=== PATIENT | female | born 1950 ===

== ENCOUNTER 2016-10-27 12:08 | Inpatient (IN) | payer MEDICARE, OTHER ==
[2016-10-27] MEDS ORDERED: NALOXONE 0.4 MG/ML 1 ML VIAL IV PRN (14:51)
[2016-10-27] MEDS ORDERED: ACETAMINOPHEN TAB 325 MG TAB PO PRN (14:51)
[2016-10-27] MEDS ORDERED: ALPRAZolam 0.25 MG TAB PO PRN (14:51)
[2016-10-27] MEDS ORDERED: HYDROcodone/APAP 5-325MG 1 EACH TAB PO PRN (14:51)
[2016-10-27] MEDS ORDERED: MELATONIN 3 MG TABLET PO PRN (14:51)
[2016-10-27] MEDS ORDERED: HYDROmorphone 1 MG/ML 1 ML SYRINGE IVP PRN (14:55)
--- NOTE | 2016-10-27 15:21 | XR ---
EXAMINATION TYPE: XR chest 1V portable DATE OF EXAM: 10/27/2016 COMPARISON: NONE HISTORY: Shortness of breath TECHNIQUE: Single frontal view of the chest is obtained. FINDINGS: Hyperinflation noted. Diffuse osteopenia with arthropathy of the shoulders greater on the right. No overt failure or pneumothorax. Curvature the spine noted. Surgical change in the abdomen. IMPRESSION: 1. Correlate with for COPD
[2016-10-27] MEDS ORDERED: PANTOPRAZOLE 40 MG TABLET PO SCH (15:30)
[2016-10-27] MEDS ORDERED: ONDANSETRON 4 MG/2 ML VIAL IVP PRN (15:41)
[2016-10-27 15:49] LABS: Basophils % (A) 1 %; CH 29.6; CHCM 35.9; Eosinophils % (A) 0 %; HCT 33.6 % (34.0-46.0); HDW 3.28; HGB 11.6 gm/dL (11.4-16.0); Luc # (Auto) 0.12; Luc % (Auto) 2; Lymphocytes # (A) 1.7 k/uL (1.0-4.8); Lymphocytes % (A) 22 %; MCH 28.5 pg (25.0-35.0); MCHC 34.4 g/dL (31.0-37.0); MCV 82.8 fL (80.0-100.0); Mean Platelet Volume 7.1; Monocytes # (A) 0.4 k/uL (0-1.0); Monocytes % (A) 5 %; Neutrophils # (A) 5.5 k/uL (1.3-7.7); Neutrophils % (A) 71 %; RBC 4.06 m/uL (3.80-5.40); WBC 7.7 k/uL (3.8-10.6); WBC (Perox) 8.04
[2016-10-27 15:58] LABS: ALT 37 U/L (9-52); AST 15 U/L (14-36); Alkaline Phosphatase 102 U/L (38-126); Anion Gap 7 mmol/L; Blood Urea Nitrogen 13 mg/dL (7-17); Calcium 8.5 mg/dL (8.4-10.2); Carbon Dioxide 26 mmol/L (22-30); Chloride 106 mmol/L (98-107); Glucose 203 mg/dL (74-99); LDH 410 U/L (313-618); Magnesium 1.6 mg/dL (1.6-2.3); Non-African American GFR(MDRD) >60 (>60 ml/min/1.73 sqM); Phosphorous 3.8 mg/dL (2.5-4.5); Potassium 3.9 mmol/L (3.5-5.1); Sodium 139 mmol/L (137-145); Total Bilirubin 0.3 mg/dL (0.2-1.3)
[2016-10-27 16:00] VITALS: RESP 18
[2016-10-27 17:10] LABS: Creatine Kinase MB 0.9 ng/mL (0.0-2.4); Troponin I 0.028 ng/mL (0.000-0.034)
[2016-10-27] MEDS: HEPARIN SODIUM,PORCINE 5,000 UNIT/ML 1 ML VIAL SQ SCH ×2 (17:11→23:07)
[2016-10-27] MEDS: PANTOPRAZOLE 40 MG/10 ML VIAL IVP SCH (17:11)
[2016-10-27] MEDS: SODIUM CHLORIDE 0.9% 1,000 ML IV SCH (17:12)
[2016-10-27 17:34] LABS: Glucose,Whole Blood 220 mg/dL (75-99)
[2016-10-27] MEDS: INSULIN LISPRO (humaLOG) 300 UNIT/3 ML VIAL SQ SCH ×3 (17:36→22:16)
[2016-10-27 19:05] LABS: Hemoglobin A1C 9.6 % (4.2-6.1)
[2016-10-27] MEDS: SUCRALFATE 1 GM TAB PO SCH (20:53)
[2016-10-27] MEDS: OXYBUTYNIN CHLORIDE 5 MG TAB PO SCH (20:53)
[2016-10-27] MEDS: INSULIN DETEMIR 100 UNIT/ML 10 ML VIAL SQ SCH (21:01)
[2016-10-27 21:12] LABS: Glucose,Whole Blood 200 mg/dL (75-99)
[2016-10-27 22:55] LABS: Appearance,Urine Cloudy (Clear); Bacteria,Urine Many /hpf; Bilirubin,Urine Negative (Negative); Glucose,Urine (UA) Trace (Negative); Ketones,Urine Negative (Negative); Leukocyte Esterase,Urine Large (Negative); Mucus,Urine Rare /hpf; Nitrite,Urine Positive (Negative); Particle Count 89199; Protein,Urine 1+ (Negative); RBC,Urine 4 /hpf (0-5); Specific Gravity,Urine 1.014 (1.001-1.035); Squamous Epithelial Cell,Urine 6 /hpf (0-4); UA Billing (MACRO vs. MICRO) MICRO; Urobilinogen,Urine <2.0 mg/dL (<2.0); WBC,Urine 100 /hpf (0-5)
--- NOTE | 2016-10-27 23:16 | HP ---
HISTORY AND PHYSICAL CHIEF COMPLAINT: Nausea and complete heart block. HISTORY OF PRESENT ILLNESS: This 66-year-old woman with a past medical history male with a past history of COPD, history of left-sided stroke and diabetes type 2, hypertension, hyperlipidemia, being by Dr. Boggs in [place] in the outpatient setting, was having nausea vomiting and patient was taken to [facility] and the patient was noted to have strips of complete heart block and complete AV dissociation with junctional escape for about a few seconds and the patient was directly transferred to [facility] for further evaluation and treatment. The patient has some dysarthria because of the CVA and most of the history is taken in my discussion with staff as well as review of the chart as well as discussion with the ER physician at [facility]. There is no history of fever, rigors. No history of headache, loss of consciousness, seizures. PAST MEDICAL HISTORY: History of left-sided stroke, history COPD, history diabetes mellitus type 2 with hypertension, hyperlipidemia. MEDICATIONS PRIOR TO ADMISSION: Home medications are: 1. Levemir 35 units subcu q.h.s. 2. Aspirin 81 mg daily. 3. Lanoxin 250 mcg p.o. daily. 4. Plavix 75 mg daily. 5. NovoLog 15 units b.i.d. 6. HydroDIURIL 25 mg daily. 7. Imdur 30 mg p.o. daily. 8. Macrobid 100 mg p.o. daily. 9. Zestril 5 mg p.o. 10.Zofran 4 mg q.8h p.r.n. 11.Ditropan 5 mg p.o. b.i.d. 12.Zantac 150 mg p.o. b.i.d. 13.K-Tab ER 20 mEq p.o. daily. 14.Zocor 20 mg p.o. daily. 15.Carafate 1 g p.o. b.i.d. ALLERGIES: IODINATED CONTRAST, IODINE AND SHRIMP. FAMILY HISTORY: No history of heart disease, strokes in the family. SOCIAL HISTORY: History of smoking. No history of alcohol. REVIEW OF SYSTEMS: ENT: Diminished hearing. Diminished vision. CARDIOVASCULAR: No angina or palpitations. RESPIRATORY: Occasional cough. GI: As mentioned earlier. : No dysuria. NERVOUS: No numbness or weakness. ALLERGY/IMMUNOLOGY: No asthma or hay fever. MUSCULOSKELETAL: As mentioned earlier. HEMATOLOGY/ONCOLOGY: No history of anemia. ENDOCRINE: History of diabetes mellitus. CONSTITUTIONAL: As mentioned earlier. DERMATOLOGY: Negative. RHEUMATOLOGY: Negative. PSYCHIATRY: As mentioned earlier. PHYSICAL EXAM: Patient is alert, oriented x2. Pulse is 66, blood pressure 160/70, respiration 18, temperature 97.1, pulse ox 98% on 2L. HEENT: Conjunctivae normal. Oral mucosa moist. NECK: No jugular venous distention. No carotid bruits. No lymph node enlargement. No thyroid enlargement. CARDIOVASCULAR: S1, S2. No S3. No S4. RESPIRATORY: Breath sounds diminished in the bases. A few scattered rhonchi. No crackles. ABDOMEN: Soft, nontender. No mass palpable. LEGS: No edema. No swelling. NERVOUS SYSTEM: Higher functions as mentioned earlier. Cranial nerves: Left- sided upper motor neuron facial paralysis present. Otherwise, significant weakness, up to grade 1 to 2 contractures in the left upper and lower limbs present. Right side is minimally weak. Gait not tested. SKIN: Minimal rash present. LYMPHATIC: No lymphadenopathy in neck, axillae or groin. JOINTS: No arthropathy. LABS: WBC 7.7, hemoglobin is 11.6. Glucose 203. Albumin 3.1. ASSESSMENT: 1. Nausea and vomiting, possible acute gastritis. 2. Complete atrioventricular dissociation. 3. 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 4. History of chronic obstructive pulmonary disease. 5. Diabetes type 2. 6. Hypertension. 7. Hyperlipidemia. 8. History of degenerative joint disease. 9. History of seizure disorder. 10.History of cholecystectomy. 11.History left mastectomy. 12.FULL CODE. RECOMMENDATIONS AND DISCUSSION: In this 66-year-old woman who presented with multiple complex medical issues, will monitor the patient closely, continue with current medications and symptomatic treatment. Otherwise, would recommend to hold the digoxin, check serum digoxin levels, cardiology consultation. The patient may be evaluated for a pacemaker placement. Overall prognosis is guarded. Accu-Cheks a.c. and DVT prophylaxis. See orders for further details. Prognosis guarded. Discussed with the patient and further recommendations to follow. MMODL / IJN: [id number] / MTDD
[2016-10-27 23:24] LABS: Creatine Kinase MB 0.6 ng/mL (0.0-2.4); Troponin I 0.023 ng/mL (0.000-0.034)
[2016-10-28] MEDS ORDERED: ALBUTEROL NEBULIZED 2.5 MG/3 ML INHALATION PRN (01:24)
[2016-10-28 05:48] LABS: Glucose,Whole Blood 56 mg/dL (75-99)
[2016-10-28] MEDS: INSULIN LISPRO (humaLOG) 300 UNIT/3 ML VIAL SQ SCH ×6 (06:06→21:08)
[2016-10-28 06:10] LABS: Glucose,Whole Blood 85 mg/dL (75-99)
[2016-10-28 07:05] LABS: Basophils % (A) 0 %; CH 28.3; Eosinophils % (A) 0 %; HDW 3.32; HGB 11.9 gm/dL (11.4-16.0); Luc # (Auto) 0.12; Luc % (Auto) 1; Lymphocytes # (A) 2.1 k/uL (1.0-4.8); Lymphocytes % (A) 18 %; MCH 28.4 pg (25.0-35.0); MCHC 34.9 g/dL (31.0-37.0); MCV 81.2 fL (80.0-100.0); Mean Platelet Volume 6.5; Monocytes # (A) 0.5 k/uL (0-1.0); Monocytes % (A) 4 %; Neutrophils # (A) 8.9 k/uL (1.3-7.7); Neutrophils % (A) 76 %; RBC 4.18 m/uL (3.80-5.40); RDW 13.7 % (11.5-15.5); WBC 11.6 k/uL (3.8-10.6); WBC (Perox) 12.26
[2016-10-28 07:25] LABS: Anion Gap 7 mmol/L; Calcium 9.2 mg/dL (8.4-10.2); Carbon Dioxide 27 mmol/L (22-30); Chloride 106 mmol/L (98-107); Non-African American GFR(MDRD) >60 (>60 ml/min/1.73 sqM); Potassium 3.4 mmol/L (3.5-5.1); Sodium 140 mmol/L (137-145)
[2016-10-28 07:27] LABS: Blood Urea Nitrogen 15 mg/dL (7-17)
[2016-10-28 07:35] LABS: Glucose 47 mg/dL (74-99)
[2016-10-28 07:48] LABS: Creatine Kinase MB 0.5 ng/mL (0.0-2.4); Troponin I 0.014 ng/mL (0.000-0.034)
--- NOTE | 2016-10-28 08:57 | P.CRDCN ---
History of Present Illness Consult date: 10/28/16 Consult reason: other (Complete heart block) History of present illness: 66-year-old lady with complex and multiple medical problems including prior CVA with left hemiplegia was admitted to hospital with episodes of nausea vomiting and and had an episode of complete heart block when she was vomiting this was transient lasted for about 10 seconds and resolved spontaneously she is transferred to [facility] for further care. Since being admitted here she is doing well and remains in sinus rhythm without any evidence of high- grade AV block patient's nausea vomiting has also resolved by now. The time of my evaluation this morning she appears comfortable at rest and is free of symptoms. I believe the elevated complete heart block is vasovagal in origin and she does not require a permanent pacemaker at this time. I'm going to obtain TSH if one has not been done and a 2-D echo to document her LV function. Review of Systems Constitutional: Denies chills. Denies fever. Eyes: Denies blurred vision. Denies pain. Ears, nose, mouth and throat: Denies headache. Denies sore throat. Cardiovascular: Denies chest pain. Denies shortness of breath. Respiratory: Denies cough. Patient has nausea vomiting Gastrointestinal: Denies abdominal pain. Musculoskeletal: Denies myalgias. Integumentary: Denies pruritus. Denies rash. Neurological: Denies numbness. Left-sided weakness. Psychiatric: Denies anxiety. Denies depression. Endocrine: Denies fatigue. Denies weight change. Genitourinary: Denies burning, hematuria, frequency of urination. Hematological: No anemia or excess bleeding. Past Medical History Past Medical History: Asthma, Cancer, COPD, CVA/TIA, Diabetes Mellitus, GERD/ Reflux, Hyperlipidemia, Hypertension, Liver Disease, Osteoarthritis (OA), Seizure Disorder Additional Past Medical History / Comment(s): anemia, breast cancer, CVA with residual left sided weakness, peptic ulcer History of Any Multi-Drug Resistant Organisms: None Reported Past Surgical History: Cholecystectomy, Hysterectomy Additional Past Surgical History / Comment(s): left mastectomy, EGD, cyst removal, bladder suspension, right outer chest wall mass excision Past Anesthesia/Blood Transfusion Reactions: Unable to Obtain Past Psychological History: Unable to Obtain Smoking Status: Current every day smoker Past Alcohol Use History: Unable to Obtain Past Drug Use History: Unable to Obtain Medications and Allergies Home Medications Medication Instructions Recorded Confirmed Type Acetaminophen-Codeine 300-30mg 1 tab PO Q6H PRN 10/27/16 10/27/16 History [Tylenol #3] Albuterol Inhaler [Ventolin Hfa 2 puff INHALATION RT-Q4H PRN 10/27/16 10/27/16 History Inhaler] Aspirin [Adult Low Dose Aspirin EC] 81 mg PO DAILY 10/27/16 10/27/16 History Baclofen [Lioresal] 10 mg PO BID 10/27/16 10/27/16 History Clopidogrel [Plavix] 75 mg PO DAILY 10/27/16 10/27/16 History Digoxin [Digitek] 125 mcg PO DAILY 10/27/16 10/27/16 History Docusate [Colace] 100 mg PO QID 10/27/16 10/27/16 History Hydrochlorothiazide [Hydrodiuril] 25 mg PO DAILY 10/27/16 10/27/16 History Ibuprofen [Motrin] 400 mg PO TID PRN 10/27/16 10/27/16 History Insulin Detemir [Levemir Flextouch] 40 units SQ QAM 10/27/16 10/27/16 History Insulin Detemir [Levemir] 35 units SQ HS 10/27/16 10/27/16 History Isosorbide Mononitrate ER [Imdur] 30 mg PO DAILY 10/27/16 10/27/16 History Lisinopril [Zestril] 5 mg PO DAILY 10/27/16 10/27/16 History Loratadine [Claritin] 10 mg PO DAILY 10/27/16 10/27/16 History Nitrofurantoin Macrocrystal 50 mg PO DAILY 10/27/16 10/27/16 History [Macrodantin] Ondansetron Odt [Zofran ODT] 4 mg SUBLINGUAL Q8HR PRN 10/27/16 10/27/16 History Oxybutynin Chloride [Ditropan] 5 mg PO QID 10/27/16 10/27/16 History Ranitidine HCl [Zantac] 150 mg PO BID 10/27/16 10/27/16 History Simvastatin [Zocor] 20 mg PO DAILY 10/27/16 10/27/16 History Sucralfate [Carafate] 1 gram PO BID 10/27/16 10/27/16 History hydrOXYzine HCL [Atarax] 25 mg PO HS 10/27/16 10/27/16 History Allergies Allergy/AdvReac Type Severity Reaction Status Date / Time Iodinated Contrast- Oral and Allergy Unknown Verified 10/27/16 16:52 IV Dye iodine Allergy Unknown Verified 10/27/16 16:52 shrimp Allergy Unknown Verified 10/27/16 16:52 Physical Exam Vitals: Vital Signs Temp Pulse Resp BP Pulse Ox 10/28/16 04:00 98.6 F 69 18 121/55 93 L 10/27/16 23:44 97.8 F 62 18 131/59 95 10/27/16 20:00 97.7 F 65 16 118/56 99 10/27/16 18:08 97.1 F L 66 18 141/61 98 10/27/16 15:02 97.1 F L 66 18 165/70 98 10/27/16 15:00 98 18 Intake and Output 10/27/16 10/28/16 10/28/16 22:59 06:59 14:59 Intake Total 60 120 Output Total 200 Balance 60 -80 Intake: IV 120 Sodium Chloride 0.9% 1, 120 000 ml @ 20 mls/hr IV . Q24H BEE Rx#:[id number] Intake, IV Titration 60 Amount Sodium Chloride 0.9% 1, 60 000 ml @ 20 mls/hr IV . Q24H [facility] Rx#:[id number] Oral 0 Output: Urine 200 Other: Voiding Method Toilet Toilet Incontinent Incontinent # Voids 1 1 Weight 63.5 kg 64.8 kg General: The patient is awake and alert, in no distress, and does not appear acutely ill. Skin: Skin is warm and dry and no rashes or lesions are noted. Eye: Pupils are equal, round and reactive to light, extra-ocular movements are intact; there is normal conjunctiva bilaterally. Ears, nose, mouth and throat: There are moist mucous membranes and no oral lesions. Neck: The neck is supple, there is no tenderness or JVD. Cardiovascular: There is a regular rate and rhythm. No murmur, rub or gallop is appreciated. Respiratory: Lungs are clear to auscultation, respirations are non-labored, breath sounds are equal. Gastrointestinal: Soft, non-distended, non-tender abdomen without masses or organomegaly noted. There is no rebound or guarding present. Bowel sounds are unremarkable. Back: There is no tenderness to palpation in the midline. There is no obvious deformity. Musculoskeletal: Normal ROM, no tenderness, There is no pedal edema. There is no calf tenderness or swelling. Extremities: No edema. Vascular: Femoral pulse is normal. Posterior tibial pulses are normal .Dorsalis pedis is palpable. Neurological: Left-sided hemiplegia Psychiatric: Cooperative, appropriate mood & affect, normal judgment. Results 10/28/16 06:30 10/28/16 06:30 Cardiac Enzymes 10/27/16 10/27/16 10/27/16 Range/Units 15:03 16:30 22:23 AST 15 (14-36) U/L Lactate Dehydrogenase 410 (313-618) U/L CK-MB (CK-2) 0.9 0.6 (0.0-2.4) ng/mL Troponin I 0.028 0.023 (0.000-0.034) ng/mL 10/28/16 Range/Units 06:30 AST (14-36) U/L Lactate Dehydrogenase (313-618) U/L CK-MB (CK-2) 0.5 (0.0-2.4) ng/mL Troponin I 0.014 (0.000-0.034) ng/mL CBC 10/27/16 10/28/16 Range/Units 15:03 06:30 WBC 7.7 11.6 H (3.8-10.6) k/uL RBC 4.06 4.18 (3.80-5.40) m/uL Hgb 11.6 11.9 (11.4-16.0) gm/dL Hct 33.6 L 34.0 (34.0-46.0) % Plt Count 228 240 (150-450) k/uL Comprehensive Metabolic Panel 10/27/16 10/28/16 Range/Units 15:03 06:30 Sodium 139 140 (137-145) mmol/L Potassium 3.9 3.4 L (3.5-5.1) mmol/L Chloride 106 106 (98-107) mmol/L Carbon Dioxide 26 27 (22-30) mmol/L BUN 13 15 (7-17) mg/dL Creatinine 0.79 0.81 (0.52-1.04) mg/dL Glucose 203 H 47 L* (74-99) mg/dL Calcium 8.5 9.2 (8.4-10.2) mg/dL AST 15 (14-36) U/L ALT 37 (9-52) U/L Alkaline Phosphatase 102 (38-126) U/L Total Protein 6.0 L (6.3-8.2) g/dL Albumin 3.1 L (3.5-5.0) g/dL Current Medications Generic Name Dose Route Start Last Admin Trade Name Freq PRN Reason Stop Dose Admin Acetaminophen 650 mg 10/27/16 14:51 Tylenol Tab PO Q6HR PRN Mild Pain or Fever > 100.5 Hydrocodone Bitart/Acetaminophen 1 each 10/27/16 14:51 [place] 5-325 PO Q4HR PRN Moderate Pain Albuterol Sulfate 2.5 mg 10/28/16 01:24 Ventolin Nebulized INHALATION RT-Q4H PRN Shortness Of Breath Alprazolam 0.25 mg 10/27/16 14:51 Xanax PO Q6HR PRN Anxiety Aspirin 81 mg 10/28/16 09:00 Aspirin PO DAILY COUNTS INCLUDE 234 BEDS AT THE [facility] Atorvastatin Calcium 10 mg 10/28/16 09:00 Lipitor PO DAILY COUNTS INCLUDE 234 BEDS AT THE [facility] Baclofen 10 mg 10/28/16 09:00 Lioresal PO BID COUNTS INCLUDE 234 BEDS AT THE [facility] Clopidogrel Bisulfate 75 mg 10/28/16 09:00 Plavix PO DAILY COUNTS INCLUDE 234 BEDS AT THE [facility] Docusate Sodium 100 mg 10/28/16 09:00 Colace PO QID COUNTS INCLUDE 234 BEDS AT THE [facility] Heparin Sodium (Porcine) 5,000 unit 10/27/16 15:30 10/27/16 23:07 Heparin SQ 5,000 unit Q12HR COUNTS INCLUDE 234 BEDS AT THE [facility] Administration Hydrochlorothiazide 25 mg 10/28/16 09:00 Hydrodiuril PO DAILY COUNTS INCLUDE 234 BEDS AT THE [facility] Hydromorphone HCl 0.5 mg 10/27/16 14:55 Dilaudid IVP Q6HR PRN Severe Pain Sodium Chloride 1,000 mls @ 20 mls/hr 10/27/16 15:00 10/27/16 17:12 Saline 0.9% IV 20 mls/hr .Q24H COUNTS INCLUDE 234 BEDS AT THE [facility] Administration Ceftriaxone Sodium 1,000 mg/ 50 mls @ 100 mls/hr 10/28/16 09:00 Sodium Chloride IVPB Q24HR COUNTS INCLUDE 234 BEDS AT THE [facility] Insulin Detemir 35 unit 10/27/16 21:00 10/27/16 21:01 Levemir SQ 35 unit HS COUNTS INCLUDE 234 BEDS AT THE [facility] Administration Insulin Detemir 40 unit 10/28/16 09:00 Levemir SQ QAM COUNTS INCLUDE 234 BEDS AT THE [facility] Insulin Human Lispro 15 unit 10/27/16 17:30 10/28/16 06:09 Humalog SQ Not Given BID-W/MEALS COUNTS INCLUDE 234 BEDS AT THE [facility] Insulin Human Lispro 0 unit 10/27/16 17:30 10/28/16 06:06 Humalog SQ Not Given ACHS COUNTS INCLUDE 234 BEDS AT THE [facility] Protocol Isosorbide Mononitrate 30 mg 10/28/16 09:00 Imdur PO DAILY COUNTS INCLUDE 234 BEDS AT THE [facility] Lisinopril 5 mg 10/28/16 09:00 Zestril PO DAILY COUNTS INCLUDE 234 BEDS AT THE [facility] Melatonin 3 mg 10/27/16 14:51 Melatonin PO HS PRN Insomnia Naloxone HCl 0.2 mg 10/27/16 14:51 Narcan IV Q2M PRN Opioid Reversal Ondansetron HCl 4 mg 10/27/16 15:41 Zofran IVP Q6HR PRN Nausea And Vomiting Oxybutynin Chloride 5 mg 10/27/16 21:00 10/27/16 20:53 Ditropan PO 5 mg BID COUNTS INCLUDE 234 BEDS AT THE [facility] Administration Pantoprazole Sodium 40 mg 10/27/16 15:45 10/27/16 17:11 Protonix IVP 40 mg DAILY COUNTS INCLUDE 234 BEDS AT THE [facility] Administration Potassium Chloride 20 meq 10/28/16 09:00 K-Dur 20 PO DAILY COUNTS INCLUDE 234 BEDS AT THE [facility] Sucralfate 1 gm 10/27/16 21:00 10/27/16 20:53 Carafate PO 1 gm BID COUNTS INCLUDE 234 BEDS AT THE [facility] Administration Intake and Output 10/27/16 10/28/16 10/28/16 22:59 06:59 14:59 Intake Total 60 120 Output Total 200 Balance 60 -80 Intake: IV 120 Sodium Chloride 0.9% 1, 120 000 ml @ 20 mls/hr IV . Q24H COUNTS INCLUDE 234 BEDS AT THE [facility] Rx#:[id number] Intake, IV Titration 60 Amount Sodium Chloride 0.9% 1, 60 000 ml @ 20 mls/hr IV . Q24H COUNTS INCLUDE 234 BEDS AT THE [facility] Rx#:[id number] Oral 0 Output: Urine 200 Other: Voiding Method Toilet Toilet Incontinent Incontinent # Voids 1 1 Weight 63.5 kg 64.8 kg 10/28/16 06:30 10/28/16 06:30 EKG Interpretations (text) Normal sinus rhythm with nonspecific ST-T wave changes Reviewed monitor strips from the other hospital patient had an episode of complete heart block along with vomiting probably vasovagal Assessment and Plan Plan: Nausea vomiting workup in progress Complete heart block vasovagal in origin Does not need pacemaker I will obtain a 2-D echo I reviewed the testing done at the other hospital reviewed the EKGs and rhythm strips.
[2016-10-28] MEDS: ASPIRIN 81 MG CHEW PO SCH (09:46)
[2016-10-28] MEDS: ATORVASTATIN 10 MG TAB PO SCH (09:46)
[2016-10-28] MEDS: BACLOFEN 10 MG TAB PO SCH ×2 (09:46→20:11)
[2016-10-28] MEDS: HYDROCHLOROTHIAZIDE 25 MG TAB PO SCH (09:47)
[2016-10-28] MEDS: CLOPIDOGREL 75 MG TAB PO SCH (09:47)
[2016-10-28] MEDS: HEPARIN SODIUM,PORCINE 5,000 UNIT/ML 1 ML VIAL SQ SCH ×2 (09:47→20:11)
[2016-10-28] MEDS: ISOSORBIDE MONONITRATE ER 30 MG TAB.ER.24H PO SCH (09:47)
[2016-10-28] MEDS: LISINOPRIL 5 MG TAB PO SCH (09:47)
[2016-10-28] MEDS: DOCUSATE 100 MG CAP PO SCH ×4 (09:47→20:11)
[2016-10-28] MEDS: PANTOPRAZOLE 40 MG/10 ML VIAL IVP SCH (09:48)
[2016-10-28] MEDS: SUCRALFATE 1 GM TAB PO SCH ×2 (09:48→20:11)
[2016-10-28] MEDS: OXYBUTYNIN CHLORIDE 5 MG TAB PO SCH ×2 (09:48→20:11)
[2016-10-28] MEDS: POTASSIUM CHLORIDE ER 20 MEQ TAB.ER PO SCH (09:48)
[2016-10-28 11:38] LABS: Glucose,Whole Blood 184 mg/dL (75-99)
--- NOTE | 2016-10-28 12:05 | CDI ---
In responding to this query, please exercise your independent professional judgment. The [facility] Coding Staff and Clinical Documentation Specialists appreciate your assistance in clarifying documentation, maintaining compliance with coding guidelines, accurately documenting patients condition and capturing severity of illness. The fact that a question is asked does not imply that any particular answer is desired or expected. Communication forms are a method of clarifying documentation and are not made part of the Legal Health Record. Thank you in advance for your clarification. Last Revision, December 2014 Jaya Molina [address] [facility] [place] [address] Documentation Clarification Form Date: 10/28/2016 11:49:00 AM From: Barbara Almendarez RN, CDS Admit Date: 10/27/2016 2:48:00 PM Patient Name: Kristi Bang Visit Number: [id number] Dr. Autumn Zimmerman, 66 year old patient admitted for complete heart block from an outside facility. History/Risk Factors: CVA with left hemiplegia and contractures, Seizure disorder, HTN, DM2, COPD Clinical Indicators: UA large leuk amrcelle, +nitrite, many bacteria Treatment: IV Rocephin Please document the condition that these clinical indicators signify, whether Present on Admission, and cause if known: UTI, present on admission Pyelonephritis Unable to determine Other Please document in your progress notes and discharge summary in order to capture severity of illness and risk of mortality. Include clinical findings that support your diagnosis. FYI: Press F11 to launch patient chart. Thank you. INESSA
[2016-10-28] MEDS: INSULIN DETEMIR 100 UNIT/ML 10 ML VIAL SQ SCH ×2 (12:22→20:20)
[2016-10-28 12:46] VITALS: BMI 27.3
[2016-10-28] MEDS ORDERED: Magnesium Replacement Protocol 1 EACH MISC MISCELLANE PRN (12:56)
[2016-10-28] MEDS ORDERED: Potassium Replacement Protocol 1 EACH MISC MISCELLANE PRN (12:56)
[2016-10-28] MEDS: SODIUM CHLORIDE 0.9% 1,000 ML IV SCH (16:22)
[2016-10-28] MEDS: MAGNESIUM SULFATE-D5W PMX 1 GM in DEXTROSE/WATER 1 100ML.BAG IVPB SCH ×2 (16:23→17:33)
[2016-10-28 16:47] LABS: Glucose,Whole Blood 244 mg/dL (75-99)
--- NOTE | 2016-10-28 17:44 | ECHOF ---
Referral Reason:complete heart block MEASUREMENTS -------- HEIGHT: 152.4 cm WEIGHT: 64.4 kg BP: 121/55 RVIDd: 2.5 cm (< 3.3) IVSd: 0.9 cm (0.6 - 1.1) LVIDd: 4.8 cm (3.9 - 5.3) LVPWd: 0.9 cm (0.6 - 1.1) IVSs: 1.4 cm LVIDs: 3.4 cm LVPWs: 1.3 cm LAESV Index (A-L): 22.60 ml/m Ao Diam: 3.0 cm (2.0 - 3.7) AV Cusp: 1.6 cm (1.5 - 2.6) LA Diam: 3.5 cm (2.7 - 3.8) MV EXCURSION: 17.202 mm (> 18.000) MV EF SLOPE: 120 mm/s (70 - 150) EPSS: 0.4 cm MV E Humberto: 1.06 m/s MV DecT: 226 ms MV A Humberto: 0.79 m/s MV E/A Ratio: 1.34 RAP: 15.00 mmHg RVSP: 40.47 mmHg FINDINGS -------- Sinus rhythm. This was a technically adequate study. Pt had mastectomy The left ventricular size is normal. Left ventricular wall thickness is normal. Overall left ventricular systolic function is normal with, an EF between 55 - 60 %. The right ventricle is mildly enlarged. The right ventricular systolic function is normal. Normal LA size by volume 22+/-6 ml/m2. RA appears enlarged. Aortic valve is trileaflet and is mildly thickened. There is no evidence of aortic regurgitation. There is no evidence of aortic stenosis. The mitral valve leaflets are mildly thickened. There is trace to mild mitral regurgitation. Trace tricuspid regurgitation present. There is mild pulmonary hypertension. The right ventricular systolic pressure, as measured by Doppler, is 40.47mmHg. The pulmonic valve was not well visualized. The aortic root size is normal. The inferior vena cava is dilated with poor inspiratory collapse which is consistent with estimated right atrial pressure of 20 mmHg. There is a trivial pericardial effusion present. CONCLUSIONS -------- 1. Sinus rhythm. 2. Aortic valve is trileaflet and is mildly thickened. 3. The mitral valve leaflets are mildly thickened. 4. There is trace to mild mitral regurgitation. 5. Trace tricuspid regurgitation present. 6. There is mild pulmonary hypertension. 7. The right ventricular systolic pressure, as measured by Doppler, is 40.47mmHg. 8. The pulmonic valve was not well visualized. 9. The aortic root size is normal. 10. The inferior vena cava is dilated with poor inspiratory collapse which is consistent with estimated right atrial pressure of 20 mmHg. 11. There is a trivial pericardial effusion present. 12. This was a technically adequate study. 13. Pt had mastectomy 14. The left ventricular size is normal. 15. Overall left ventricular systolic function is normal with, an EF between 55 - 60 %. 16. The right ventricle is mildly enlarged. 17. The right ventricular systolic function is normal. 18. Normal LA size by volume 22+/-6 ml/m2. 19. RA appears enlarged. FIRE WATCHMAN: Zenon Reynoso RDCS
--- NOTE | 2016-10-28 18:17 | P.PN ---
Subjective Date of service 10/28/2016 Progress note being dictated for Dr. Zimmerman Interval history: This a 66-year-old female admitted with nausea vomiting, possible gastritis, complete AV disassociation and multiple other medical issues. Evaluated by cardiology, suspect related to vasovagal with no recommendation for a pacemaker at this time. Telemetry reporting sinus rhythm. No further nausea vomiting. No diarrhea. Good diet intake, consuming 100%. 2-D Echo reporting normal LV function, EF 55-60%. Denies chest pain, palpitations or increasing shortness of breath. Objective - Vital Signs Vital signs: Vital Signs Temp 96.7 F L 10/28/16 15:12 Pulse 62 10/28/16 15:12 Resp 18 10/28/16 15:12 BP 132/61 10/28/16 15:12 Pulse Ox 97 10/28/16 15:12 Intake & Output 10/27/16 10/28/16 10/28/16 18:59 06:59 18:59 Intake Total 60 120 456 Output Total 200 Balance 60 -80 456 Weight 63.5 kg 64.8 kg 64.8 kg Intake: IV 120 Sodium Chloride 0.9% 1, 120 000 ml @ 20 mls/hr IV . Q24H BEE Rx#:[id number] Intake, IV Titration 60 Amount Sodium Chloride 0.9% 1, 60 000 ml @ 20 mls/hr IV . Q24H BEE Rx#:[id number] Oral 0 456 Output: Urine 200 Other: Voiding Method Toilet Toilet Toilet Incontinent Incontinent Incontinent # Voids 1 1 1 # Bowel Movements 1 - Exam PHYSICAL EXAM: VITAL SIGNS: As above GENERAL: Sitting up in bed, no acute distress HEENT: Conjunctivae normal. eyes normal. Mucosa NECK: No JVD. No thyroid enlargement. No LNs CARDIOVASCULAR: S1, S2 muffled. No murmur RESPIRATION: Breath sounds diminished in the bases. No rhonchi or crackles. No bronchial breathing. ABDOMEN: Soft, nontender . No guarding. no masses palpable. No ascites, No hepatosplenomegaly.Bowel sounds heard. LEGS: No edema. no swelling PSYCHIATRY: Alert and oriented -3, mood and affect normal. NERVOUS SYSTEM: Cranial N 2-12 grossly normal. No focal deficits. Left-sided upper motor neuron Facial paralysis, grade 1-2 contractures left upper and left lower limbs present. Minimal weakness right-side. Skin: no ulcer no rash Joints: No active swelling. No arthroplasty Lymphatic system. No LN neck axilla or groin. - Labs CBC & Chem 7: 10/28/16 06:30 10/28/16 06:30 Labs: Abnormal Lab Results - Last 24 Hours (Table) 10/27/16 10/27/16 10/27/16 Range/Units 15:03 21:10 22:38 WBC (3.8-10.6) k/uL Neutrophils # (1.3-7.7) k/uL Potassium (3.5-5.1) mmol/L Glucose (74-99) mg/dL POC Glucose (mg/dL) 200 H (75-99) mg/dL Hemoglobin A1c 9.6 H (4.2-6.1) % Magnesium (1.6-2.3) mg/dL Urine Appearance Cloudy H (Clear) Urine Protein 1+ H (Negative) Urine Glucose (UA) Trace H (Negative) Urine Blood Small H (Negative) Urine Nitrite Positive H (Negative) Ur Leukocyte Esterase Large H (Negative) Urine WBC 100 H (0-5) /hpf Urine WBC Clumps Many H (None) /hpf Ur Squamous Epith Cells 6 H (0-4) /hpf Urine Bacteria Many H (None) /hpf Urine Mucus Rare H (None) /hpf 10/28/16 10/28/16 10/28/16 Range/Units 05:47 06:30 06:30 WBC 11.6 H (3.8-10.6) k/uL Neutrophils # 8.9 H (1.3-7.7) k/uL Potassium 3.4 L (3.5-5.1) mmol/L Glucose 47 L* (74-99) mg/dL POC Glucose (mg/dL) 56 L (75-99) mg/dL Hemoglobin A1c (4.2-6.1) % Magnesium (1.6-2.3) mg/dL Urine Appearance (Clear) Urine Protein (Negative) Urine Glucose (UA) (Negative) Urine Blood (Negative) Urine Nitrite (Negative) Ur Leukocyte Esterase (Negative) Urine WBC (0-5) /hpf Urine WBC Clumps (None) /hpf Ur Squamous Epith Cells (0-4) /hpf Urine Bacteria (None) /hpf Urine Mucus (None) /hpf 10/28/16 10/28/16 10/28/16 Range/Units 06:30 11:35 16:35 WBC (3.8-10.6) k/uL Neutrophils # (1.3-7.7) k/uL Potassium (3.5-5.1) mmol/L Glucose (74-99) mg/dL POC Glucose (mg/dL) 184 H 244 H (75-99) mg/dL Hemoglobin A1c (4.2-6.1) % Magnesium 1.5 L (1.6-2.3) mg/dL Urine Appearance (Clear) Urine Protein (Negative) Urine Glucose (UA) (Negative) Urine Blood (Negative) Urine Nitrite (Negative) Ur Leukocyte Esterase (Negative) Urine WBC (0-5) /hpf Urine WBC Clumps (None) /hpf Ur Squamous Epith Cells (0-4) /hpf Urine Bacteria (None) /hpf Urine Mucus (None) /hpf Assessment and Plan Plan: 1. Nausea, vomiting, possible acute gastritis, improving. 2. 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 [ History of CVA with left hemiplegia with contractures]. 4. [ COPD]. 5. [ Diabetes type 2]. 6. [ Seizure disorder]. Plan: Continue on current medication regime ,monitoring and symptomatic treatment. Potassium to be supplemented per replacement protocol. Earlier this morning patient had isolated episode of hypoglycemia , good diet intake with blood sugars now stable ;continue patient's home dose of Levemir. Follow closely with cardiology. Discharge planning in progress for tomorrow. The impression and plan of care has been dictated as directed as a scribe. : I performed a H&P examination of this patient and discussed the same with the dictator. I agree with the dictator's note. Any additional findings/opinions/ etc. will be noted.
[2016-10-28] MEDS: POTASSIUM CHLORIDE 10 MEQ, LIDOCAINE 2% INJ 10 MG in SODIUM CHLORIDE 0.9% 100 ML IV SCH ×2 (20:11→21:10)
[2016-10-28 20:57] LABS: Glucose,Whole Blood 126 mg/dL (75-99)
[2016-10-29 03:45] LABS: Glucose,Whole Blood 54 mg/dL (75-99)
[2016-10-29 04:08] LABS: Glucose,Whole Blood 80 mg/dL (75-99)
[2016-10-29 06:13] LABS: Basophils % (A) 0 %; CH 28.3; CHCM 34.7; Eosinophils % (A) 0 %; HCT 30.3 % (34.0-46.0); HDW 3.35; HGB 10.5 gm/dL (11.4-16.0); Luc # (Auto) 0.09; Luc % (Auto) 1; Lymphocytes # (A) 1.2 k/uL (1.0-4.8); Lymphocytes % (A) 18 %; MCH 28.4 pg (25.0-35.0); MCHC 34.7 g/dL (31.0-37.0); MCV 81.8 fL (80.0-100.0); Mean Platelet Volume 6.6; Monocytes # (A) 0.3 k/uL (0-1.0); Monocytes % (A) 4 %; Neutrophils # (A) 5.3 k/uL (1.3-7.7); Neutrophils % (A) 76 %; RBC 3.71 m/uL (3.80-5.40); RDW 13.6 % (11.5-15.5); WBC 6.9 k/uL (3.8-10.6); WBC (Perox) 7.19
[2016-10-29] MEDS: INSULIN LISPRO (humaLOG) 300 UNIT/3 ML VIAL SQ SCH ×3 (06:27→12:09)
[2016-10-29 06:28] LABS: Anion Gap 7 mmol/L; Blood Urea Nitrogen 17 mg/dL (7-17); Calcium 9.4 mg/dL (8.4-10.2); Carbon Dioxide 27 mmol/L (22-30); Chloride 103 mmol/L (98-107); Glucose 106 mg/dL (74-99); Magnesium 1.7 mg/dL (1.6-2.3); Non-African American GFR(MDRD) >60 (>60 ml/min/1.73 sqM); Potassium 4.4 mmol/L (3.5-5.1); Sodium 137 mmol/L (137-145)
[2016-10-29 06:31] LABS: Glucose,Whole Blood 123 mg/dL (75-99)
[2016-10-29] MEDS: HEPARIN SODIUM,PORCINE 5,000 UNIT/ML 1 ML VIAL SQ SCH (08:18)
[2016-10-29] MEDS: ATORVASTATIN 10 MG TAB PO SCH (08:18)
[2016-10-29] MEDS: ASPIRIN 81 MG CHEW PO SCH (08:18)
[2016-10-29] MEDS: ISOSORBIDE MONONITRATE ER 30 MG TAB.ER.24H PO SCH (08:18)
[2016-10-29] MEDS: BACLOFEN 10 MG TAB PO SCH (08:18)
[2016-10-29] MEDS: CLOPIDOGREL 75 MG TAB PO SCH (08:18)
[2016-10-29] MEDS: OXYBUTYNIN CHLORIDE 5 MG TAB PO SCH (08:19)
[2016-10-29] MEDS: DOCUSATE 100 MG CAP PO SCH ×2 (08:19→13:51)
[2016-10-29] MEDS: PANTOPRAZOLE 40 MG/10 ML VIAL IVP SCH (08:19)
[2016-10-29] MEDS: HYDROCHLOROTHIAZIDE 25 MG TAB PO SCH (08:19)
[2016-10-29] MEDS: POTASSIUM CHLORIDE ER 20 MEQ TAB.ER PO SCH (08:20)
[2016-10-29] MEDS: LISINOPRIL 5 MG TAB PO SCH (08:20)
[2016-10-29] MEDS: INSULIN DETEMIR 100 UNIT/ML 10 ML VIAL SQ SCH (08:27)
--- NOTE | 2016-10-29 10:07 | P.PN ---
Subjective Principal diagnosis: Complete heart block This is a pleasant 66-year-old female with prior history of CVA, left hemiplegia, COPD, diabetes mellitus, hypertension and hyperlipidemia. Was admitted to the hospital with episodes of nausea and vomiting. She had an episode of complete heart block when she was vomiting, this was transient lasted for about 10 seconds and resolve spontaneously. She was subsequently transferred to [facility] for further care. Since admission, she has had no evidence of high-grade AV block and patient's nausea and vomiting has resolved. A 2-D echo with Doppler showed an ejection fraction of 55-60% and mild pulmonary hypertension. TSH came in to be normal at 0.582. At the time my examination, patient is sitting up on the side of the bed. She feels well. She denies further complaints of nausea or vomiting. Temperature strips were reviewed and discussed with the nurse, no evidence of complete heart block. Objective - Vital Signs Vital signs: Vital Signs Temp 97.6 F 10/29/16 03:50 Pulse 60 10/29/16 03:50 Resp 18 10/29/16 03:50 BP 117/57 10/29/16 03:50 Pulse Ox 98 10/29/16 07:25 Intake & Output 10/28/16 10/29/16 10/29/16 18:59 06:59 18:59 Intake Total 656 400 Output Total 800 900 Balance -144 -900 400 Weight 64.8 kg 65.8 kg Intake: Oral 656 400 Output: Urine 800 900 Other: Voiding Method Toilet Toilet Incontinent # Voids 1 1 # Bowel Movements 1 - Exam PHYSICAL EXAMINATION: HEENT: Head is atraumatic, normocephalic. Pupils equal, round. Neck is supple. There is no elevated jugular venous pressure. HEART EXAMINATION: Heart sounds regular, S1 and S2 normal. No murmur or gallop heard. CHEST EXAMINATION: Lungs are clear to auscultation and precussion. No chest wall tenderness is noted on palpation or with deep breathing. ABDOMEN: Soft, nontender. Bowel sounds are heard. No organomegaly noted. EXTREMITIES: 2+ peripheral pulses with no evidence of peripheral edema and no calf tenderness noted. NEUROLOGIC patient is awake, alert and oriented x3 with left-sided hemiplegia. . - Labs CBC & Chem 7: 10/29/16 05:52 10/29/16 05:52 Labs: Abnormal Lab Results - Last 24 Hours (Table) 10/28/16 10/28/16 10/28/16 Range/Units 06:30 11:35 16:35 RBC (3.80-5.40) m/uL Hgb (11.4-16.0) gm/dL Hct (34.0-46.0) % Glucose (74-99) mg/dL POC Glucose (mg/dL) 184 H 244 H (75-99) mg/dL Magnesium 1.5 L (1.6-2.3) mg/dL 10/28/16 10/29/16 10/29/16 Range/Units 20:34 03:27 05:52 RBC 3.71 L (3.80-5.40) m/uL Hgb 10.5 L (11.4-16.0) gm/dL Hct 30.3 L (34.0-46.0) % Glucose (74-99) mg/dL POC Glucose (mg/dL) 126 H 54 L (75-99) mg/dL Magnesium (1.6-2.3) mg/dL 10/29/16 10/29/16 Range/Units 05:52 06:19 RBC (3.80-5.40) m/uL Hgb (11.4-16.0) gm/dL Hct (34.0-46.0) % Glucose 106 H (74-99) mg/dL POC Glucose (mg/dL) 123 H (75-99) mg/dL Magnesium (1.6-2.3) mg/dL Microbiology - Last 24 Hours (Table) 10/28/16 01:56 Blood Culture - Preliminary Blood No Growth after 24 hours 10/28/16 14:30 Urine Culture - Preliminary Urine,Voided Assessment and Plan Plan: Assessment and plan #1 complete heart block, vasovagal in origin #2 hypertension #3 history of CVA with left hemiplegia #4 hyperlipidemia #5 nausea and vomiting, resolved From Student Counsellor perspective, patient does not require pacemaker at this time. Patient may be discharged home. She'll follow-up as an outpatient. The above dictated assessment and findings were discussed with signing physician. The impression and plan of care have been directed as dictated. Karla Fernandez, Nurse Practitioner, acting as scribe for signing physician.
--- NOTE | 2016-10-29 10:39 | PN ---
PROGRESS NOTE Please add: Urinary tract infection, present on admission. MMODL / IJN: [id number] /
[2016-10-29 11:58] LABS: Glucose,Whole Blood 293 mg/dL (75-99)
[2016-10-29 13:01] VITALS: PULSE 65; TEMP 97.7
[2016-10-29 13:02] VITALS: BP 139/65
[2016-10-29] MEDS: SUCRALFATE 1 GM TAB PO SCH (13:51)
--- NOTE | 2016-10-29 17:59 | P.DS ---
Providers Date of admission: 10/27/16 14:48 Attending physician: Autumn Zimmerman Consults: 10/27/16 14:54 Consult Physician Routine Consulting Provider: Nigel Betancourt Consult Reason/Comments: complete heart block Do you want consulting provider notified?: Yes Primary care physician: [place] [facility] Course: This 66-year-old woman was admitted with the nausea vomiting and complete AV dissociation with a junctional rhythm. The patient was treated symptomatically. The AV dissociation was thought to be due to vasovagal reaction per cardiology. Please refer to cardiology note for further information. Digoxin level was normal. Treated symptomatically. Patient was significantly. Patient be discharged in a stable guarded prognosis after clearance from cardiology. On exam vitals stable. Cardio S1 and S2 normal abdomen soft nontender nontender no mass palpable. Respiratory system clear to auscultation. Abdomen no system no focal deficit. Final diagnosis 1. Nausea vomiting possible acute gastritis improving. 2. Complete AV dissociation possibly vasovagal currently sinus rhythm. 3. History of CVA with left hemiplegia with contractures. 4. COPD. 5. Diabetes mellitus type II. 6. Seizure disorder. Plan - Discharge Summary New Discharge Prescriptions: New Cefuroxime Axetil [Ceftin] 500 mg PO BID #8 tab INSULIN LISPRO (humaLOG) [humaLOG (formulary)] 15 unit SQ BID-W/MEALS vial Continue Sucralfate [Carafate] 1 gram PO BID Simvastatin [Zocor] 20 mg PO DAILY Ranitidine HCl [Zantac] 150 mg PO BID Oxybutynin Chloride [Ditropan] 5 mg PO QID Ondansetron Odt [Zofran ODT] 4 mg SUBLINGUAL Q8HR PRN PRN Reason: Nausea And Vomiting Lisinopril [Zestril] 5 mg PO DAILY Isosorbide Mononitrate ER [Imdur] 30 mg PO DAILY Insulin Detemir [Levemir] 35 units SQ HS Hydrochlorothiazide [Hydrodiuril] 25 mg PO DAILY Clopidogrel [Plavix] 75 mg PO DAILY Aspirin [Adult Low Dose Aspirin EC] 81 mg PO DAILY Digoxin [Digitek] 125 mcg PO DAILY Insulin Detemir [Levemir Flextouch] 40 units SQ QAM Nitrofurantoin Macrocrystal [Macrodantin] 50 mg PO DAILY hydrOXYzine HCL [Atarax] 25 mg PO HS Loratadine [Claritin] 10 mg PO DAILY Ibuprofen [Motrin] 400 mg PO TID PRN PRN Reason: Pain Albuterol Inhaler [Ventolin Hfa Inhaler] 2 puff INHALATION RT-Q4H PRN PRN Reason: Shortness Of Breath Docusate [Colace] 100 mg PO QID Baclofen [Lioresal] 10 mg PO BID Acetaminophen-Codeine 300-30mg [Tylenol w/codeine #3] 1 tab PO Q6H PRN PRN Reason: Pain Discharge Medication List Acetaminophen-Codeine 300-30mg [Tylenol w/codeine #3] 1 tab PO Q6H PRN 10/27/16 [History] Albuterol Inhaler [Ventolin Hfa Inhaler] 2 puff INHALATION RT-Q4H PRN 10/27/16 [ History] Aspirin [Adult Low Dose Aspirin EC] 81 mg PO DAILY 10/27/16 [History] Baclofen [Lioresal] 10 mg PO BID 10/27/16 [History] Clopidogrel [Plavix] 75 mg PO DAILY 10/27/16 [History] Digoxin [Digitek] 125 mcg PO DAILY 10/27/16 [History] Docusate [Colace] 100 mg PO QID 10/27/16 [History] Hydrochlorothiazide [Hydrodiuril] 25 mg PO DAILY 10/27/16 [History] Ibuprofen [Motrin] 400 mg PO TID PRN 10/27/16 [History] Insulin Detemir [Levemir Flextouch] 40 units SQ QAM 10/27/16 [History] Insulin Detemir [Levemir] 35 units SQ HS 10/27/16 [History] Isosorbide Mononitrate ER [Imdur] 30 mg PO DAILY 10/27/16 [History] Lisinopril [Zestril] 5 mg PO DAILY 10/27/16 [History] Loratadine [Claritin] 10 mg PO DAILY 10/27/16 [History] Nitrofurantoin Macrocrystal [Macrodantin] 50 mg PO DAILY 10/27/16 [History] Ondansetron Odt [Zofran ODT] 4 mg SUBLINGUAL Q8HR PRN 10/27/16 [History] Oxybutynin Chloride [Ditropan] 5 mg PO QID 10/27/16 [History] Ranitidine HCl [Zantac] 150 mg PO BID 10/27/16 [History] Simvastatin [Zocor] 20 mg PO DAILY 10/27/16 [History] Sucralfate [Carafate] 1 gram PO BID 10/27/16 [History] hydrOXYzine HCL [Atarax] 25 mg PO HS 10/27/16 [History] Cefuroxime Axetil [Ceftin] 500 mg PO BID #8 tab 10/29/16 [Rx] INSULIN LISPRO (humaLOG) [humaLOG (formulary)] 15 unit SQ BID-W/MEALS vial 11/06 [Rx] Follow up Appointment(s)/Referral(s): Hermann Boggs DO [Primary Care Provider] - 3 Days Nigel Betancourt MD [STAFF PHYSICIAN] - 6 Weeks ([facility]) Ambulatory/Diagnostic Orders: Complete Blood Count w/diff [LAB.AMB] Location: Determined By Patient Activity/Diet/Wound Care/Special Instructions: diet cardiac act limited till f/u Discharge Disposition: HOME SELF-CARE
[2016-10-30] MEDS ORDERED: PANTOPRAZOLE 40 MG TABLET PO SCH (07:30)
== END 2016-10-29 15:56 | disposition home or self-care (01) | DRG 309 ==
LOC: 6SEL 14:48
PROVIDERS: ADMIT Hospitalist; ATTEND Hospitalist
DX: I44.2 Atrioventricular block, complete (principal); I69.354 Hemiplegia and hemiparesis following cerebral infarction affecting left non-dominant side; I27.2 Other secondary pulmonary hypertension; N39.0 Urinary tract infection, site not specified; I10 Essential (primary) hypertension; E11.9 Type 2 diabetes mellitus without complications; E78.5 Hyperlipidemia, unspecified; F17.200 Nicotine dependence, unspecified, uncomplicated; G40.909 Epilepsy, unspecified, not intractable, without status epilepticus; M62.40 Contracture of muscle, unspecified site; J44.9 Chronic obstructive pulmonary disease, unspecified; K21.9 Gastro-esophageal reflux disease without esophagitis; Z79.02 Long term (current) use of antithrombotics/antiplatelets; Z79.4 Long term (current) use of insulin; Z79.82 Long term (current) use of aspirin; Z79.899 Other long term (current) drug therapy; Z85.3 Personal history of malignant neoplasm of breast; Z87.11 Personal history of peptic ulcer disease; Z90.49 Acquired absence of other specified parts of digestive tract; Z90.12 Acquired absence of left breast and nipple; Z79.2 Long term (current) use of antibiotics; J45.909 Unspecified asthma, uncomplicated; M19.90 Unspecified osteoarthritis, unspecified site; Z88.8 Allergy status to other drugs, medicaments and biological substances; Z91.041 Radiographic dye allergy status; Z91.013 Allergy to seafood; Z82.3 Family history of stroke
CPT/HCPCS: 71010; 80048; 80053; 80162; 81001; 82140; 82550; 82553; 83036; 83615; 83735; 84100; 84443; 84484; 85025; 87040; 87086; 93306; 94760

== ENCOUNTER → 2020-12-21 | Outpatient (CLI) | payer MEDICARE, OTHER ==
--- NOTE | 2020-12-21 12:27 | XR ---
EXAMINATION TYPE: XR chest 2V DATE OF EXAM: 12/21/2020 COMPARISON: NONE TECHNIQUE: PA and lateral views submitted. HISTORY: Presurgical FINDINGS: The lungs are clear and there is no pneumothorax, pleural effusion, or focal pneumonia. Cardiac dev ice noted. Diffuse osteopenia. No overt failure. Atherosclerotic change aorta. IMPRESSION: 1. No acute process.
[2020-12-21 14:11] LABS: INR 0.9 (<1.2); Partial Thromboplastin Time 23.1 sec (22.0-30.0); Prothrombin Time 9.9 sec (9.0-12.0)
[2020-12-21 14:12] LABS: Calcium 9.5 mg/dL (8.4-10.2); Potassium 5.2 mmol/L (3.5-5.1)
[2020-12-21 14:26] LABS: Appearance,Urine Clear (Clear); Bacteria,Urine Rare /hpf; Bilirubin,Urine Negative (Negative); Blood,Urine Negative (Negative); Color,Urine Light Yellow; Glucose,Urine (UA) 1+ (Negative); Ketones,Urine Negative (Negative); Leukocyte Esterase,Urine Small (Negative); Nitrite,Urine Negative (Negative); PH, Urine 6.5 (5.0-8.0); Protein,Urine Trace (Negative); RBC,Urine <1 /hpf (0-5); Specific Gravity,Urine 1.009 (1.001-1.035); Squamous Epithelial Cell,Urine 1 /hpf (0-4); Urobilinogen,Urine <2.0 mg/dL (<2.0); WBC,Urine 6 /hpf (0-5)
[2020-12-21 14:31] LABS: HCT 33.6 % (34.0-46.0); Hyperchromasia Moderate; MCH 32.4 pg (25.0-35.0); MCHC 35.7 g/dL (31.0-37.0); MCV 90.7 fL (80.0-100.0); Mean Platelet Volume 7.5; Platelet Count 245 k/uL (150-450); Poikilocytosis Slight; RDW 13.7 % (11.5-15.5); WBC 8.1 k/uL (3.8-10.6)
[2020-12-21 14:55] LABS: Lymphocytes # (M) 1.38 k/uL (1.0-4.8); Monocytes # (M) 0.32 k/uL (0-1.0); Neutrophils % (M) 79 %; Nucleated Red Blood Cells 0 /100 WBC (0-0); Total Cells Counted 100
== END | disposition home or self-care (01) ==
LOC: LABPAT 11:57
PROVIDERS: ATTEND Orthopaedic Surgery Orthopaedic Surgery of the Spine
DX: Z01.812 Encounter for preprocedural laboratory examination (principal)
CPT/HCPCS: 36415; 71046; 80048; 81001; 85025; 85610; 85730; 87070; 93005

== ENCOUNTER → 2020-12-22 | Outpatient (CLI) | payer MEDICARE, OTHER | END | disposition home or self-care (01) | LOC: LABWHC1 12:54 | PROVIDERS: ATTEND Internal Medicine Endocrinology, Diabetes & Metabolism | DX: Z01.812 Encounter for preprocedural laboratory examination (principal) | CPT/HCPCS: 86850; 86870; 86880; 86900; 86901 ==